=== PATIENT | male | born 1985 | race Caucasian/White ===

== ENCOUNTER 2016-03-29 02:01 | Emergency (ER) | payer OTHER ==
[~2016-03-29 02:01] MED LIST: COZAAR 50MG TAB50 MG PO; HYDROCHLOROTH12.5 M3 PO; LISINOPRIL20 M1 PO; MULTI-DAY VITA1 EACH PO; NORVASC 5MG TAB5 MG PO; POTASSIUM99 M3 PO; TRAMADOL50 MG PO
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
[2016-03-29 02:30] VITALS: BP 117/82
[2016-03-29] MEDS ORDERED: TAMIFLU75 M1 PO (03:13)
== END 2016-03-29 03:58 ==
LOC: ERH 02:01
DX: J10.1 Influenza due to other identified influenza virus with other respiratory manifestations (principal)
CPT/HCPCS: 81001; 87086; 87804; 87804-59